=== PATIENT | male | born 1945 | race American Indian/Alaskan Native ===

== ENCOUNTER 2017-12-23 11:32 | Emergency (ER) | payer OTHER ==
[2017-12-23 11:35] VITALS: BMI 23.7
[2017-12-23 11:37] VITALS: BP 133/67; PULSE 87; RESP 17; TEMP 98.6; O2SAT 99
[2017-12-23 12:24] LABS: VENOUS BLOOD GAS BASE EXCESS 3.6 mmol/L (0.0-2.0); VENOUS BLOOD GAS PCO2 44 mmHg (40-60); VENOUS BLOOD GAS PO2 23 mm/Hg (30-55); VENOUS BLOOD PH 7.42 (7.32-7.43)
[2017-12-23 12:29] LABS: BASO % 0.4 % (0.0-2.0); EOS % 0.5 % (0.0-4.0); LYMPH # 1.2 K/uL (1.0-4.3); LYMPH % 15.9 % (20.0-40.0); MEAN CELL VOLUME 81.4 fl (80.0-94.0); MEAN CORPUSCULAR HGB CONC 33.2 g/dL (33.0-37.0); MEAN PLATELET VOLUME 7.5 fl (7.2-11.7); MONO # 1.1 K/uL (0.0-0.8); MONO % 14.3 % (0.0-10.0); NEUT # 5.2 K/uL (1.8-7.0); NEUT % 68.9 % (50.0-75.0); NRBC % 0.1 % (0.0-0.0); RBC 3.72 Mil/uL (4.40-5.90); RED CELL DISTRIBUTION WIDTH 13.6 % (11.5-14.5); WHITE BLOOD COUNT 7.6 K/uL (4.8-10.8)
--- NOTE | 2017-12-23 12:31 | ED PDOC ---
Lower Extremity Pain/Injury Time Seen by Provider: 12/23/17 11:41 Chief Complaint (Nursing): Lower Extremity Problem/Injury Chief Complaint (Provider): Lower Extremity Problem/Injury History Per: Patient History/Exam Limitations: no limitations Onset/Duration Of Symptoms: Days (4) Additional Complaint(s): 72 years old male with history of hypertension presents to the ED for evaluation of left knee pain and swelling onset 4 days. Patient states he has had similar swelling before usually caused by increased activity. He reports swelling usually goes down on it own without pain but today it is painful, warm and pain is worsening. He denies any trauma, fever, chills or other complaints. Pt denies knowledge of incest bites or irritation to the skin. PMD: Natalie Rocha Past Medical History Reviewed: Historical Data, Nursing Documentation, Vital Signs Vital Signs: Last Vital Signs Temp 98.6 F 12/23/17 11:35 Pulse 87 12/23/17 11:35 Resp 17 12/23/17 11:35 BP 133/67 12/23/17 11:35 Pulse Ox 99 12/23/17 11:35 - Medical History PMH: HTN, Hypercholesterolemia - Surgical History Surgical History: No Surg Hx - Family History Family History: States: Unknown Family Hx - Social History Current smoker - smoking cessation education provided: No Alcohol: Social Drugs: Denies - Home Medications Home Medications: Ambulatory Orders Medication Instructions Recorded Naproxen 500 mg PO BID #14 tab 12/23/17 Sulfamethoxazole/Trimethoprim 1 tab PO BID #14 tab 12/23/17 [Bactrim DS 800 mg-160 mg] - Allergies Allergies/Adverse Reactions: Allergies Allergy/AdvReac Type Severity Reaction Status Date / Time No Known Allergies Allergy Verified 12/23/17 11:46 Review of Systems ROS Statement: Except As Marked, All Systems Reviewed And Found Negative Constitutional: Negative for: Fever, Chills Musculoskeletal: Positive for: Leg Pain (Left knee pain and swelling) Physical Exam - Reviewed Nursing Documentation Reviewed: Yes Vital Signs Reviewed: Yes - Physical Exam Appears: Positive for: Non-toxic, No Acute Distress Head Exam: Positive for: ATRAUMATIC, NORMOCEPHALIC Skin: Positive for: Warm (ertythema over right knee without fluctuance, rash, or drainage.) Extremity: Positive for: Swelling (Left knee with overline redness), Other ( Left knee is warm to touch. Effusion to medial and later aspects and over patella. Decreased ROM on fluxion. 2+ Distal pulses). Negative for: Normal ROM Neurologic/Psych: Positive for: Alert, Oriented (x3) - Laboratory Results Result Diagrams: 12/23/17 12:11 12/23/17 12:11 - ECG O2 Sat by Pulse Oximetry: 99 (RA) Pulse Ox Interpretation: Normal Medical Decision Making Medical Decision Making: Time: 1159 A/P: --Workup for septic joint --Labs and cultures --CT of knee --Will consult Orthopedic --Reassess patient [address] FINDINGS: No fracture dislocation is observed. Osteochondral defect measuring roughly 1 centimeter along the weight-bearing surface of the medial femoral condyle. Subarticular cysts along the posterior weight Moderate joint effusion. Superficial patella bursal edema. Suprapatellar spur formation. IMPRESSION: As above. 1533 Labs reviewed and within normal limits. CT shows chronic change suggestive of arthritis. Spoke to Dr. Douglass at 1458, who agrees to most likely chronic arthritic effusion with overlying of cellulitis. Due to overlying warmth/ cellulitis, will not aspirate fluid. Patient is given a prescription of antibiotic for cellulitis and Naproxen for swelling and pain. He will follow up with Dr. Douglass on Monday. Patient is instructed to return if there is pain on bending the knee, spreading of redness, fever, chills or other new symptoms develop. Pt given crutches instructions and knee placed in knee immobilizer. Scribe Attestation: Documented by Chela Miller, acting as a scribe for Debby Joseph MD. Provider Scribe Attestation: All medical record entries made by the Scribe were at my direction and personally dictated by me. I have reviewed the chart and agree that the record accurately reflects my personal performance of the history, physical exam, medical decision making, and the department course for this patient. I have also personally directed, reviewed, and agree with the discharge instructions and disposition. Disposition - Clinical Impression Clinical Impression: Cellulitis and abscess of left lower extremity, Effusion into joint, Knee pain - Disposition Referrals: Olman Douglass III, MD [Staff Provider] - Disposition: Routine/Home Disposition Time: 15:57 Condition: IMPROVED Additional Instructions: Today you were evaluated for swelling and fluid of the joint. Due to the area of redness over the knee, we will not drain the fluid. You are given antibiotics due to the infection to the skin. You have been given a referral to follow up with Dr. Douglass, orthopedic surgeon, on Monday for further evaluation of the knee swelling/fluid around the knee. It is very important to return to the emergency department if the redness spreads, worsened knee pain/ swelling, unable to bend the knee or pain when bending the knee, fever, chills, or other new symptoms. Prescriptions: Naproxen 500 mg PO BID #14 tab Sulfamethoxazole/Trimethoprim [Bactrim DS 800 mg-160 mg] 1 tab PO BID #14 tab Forms: [employer] (Lao) Print Language: ICELANDIC
[2017-12-23 12:41] LABS: BLOOD UREA NITROGEN 18 mg/dl (9-20); CALCIUM 9.8 mg/dL (8.4-10.2); GFR NON-AFRICAN AMERICAN > 60
[2017-12-23] MEDS ORDERED: Iohexol 300 100 ML IJ ONE (13:26)
[2017-12-23] MEDS ORDERED: Sodium Chloride 0.9% 100 ML ONE (13:26)
--- NOTE | 2017-12-23 14:48 | CT ---
Date of service: 12/23/2017 PROCEDURE: HISTORY: left knee septic arthritis COMPARISON: TECHNIQUE: FINDINGS: No fracture dislocation is observed. Osteochondral defect measuring roughly 1 centimeter along the weight-bearing surface of the medial femoral condyle. Subarticular cysts along the posterior weight Moderate joint effusion. Superficial patella bursal edema. Suprapatellar spur formation. IMPRESSION: As above.
--- NOTE | 2017-12-24 09:15 | RAD ---
Date of service: 12/23/2017 HISTORY: knee swelling and pain COMPARISON: No prior FINDINGS: BONES: Normal. No fracture. JOINTS: Medial compartment osteoarthritis. Joint effusion. SOFT TISSUE: Normal. OTHER FINDINGS: None . IMPRESSION: Medial compartment osteoarthritis. Joint effusion.
== END 2017-12-23 15:57 | disposition home or self-care (01) ==
LOC: H.ER 11:32
DX: L02.416 Cutaneous abscess of left lower limb (principal); M25.462 Effusion, left knee; E78.00 Pure hypercholesterolemia, unspecified; I10 Essential (primary) hypertension; M00.9 Pyogenic arthritis, unspecified
CPT/HCPCS: 29530; 73562; 73701; 80048; 82803; 85025; 99284; Q9967